=== PATIENT | male | born 1995 | race Caucasian/White ===

== ENCOUNTER → 2025-08-08 | Outpatient (CLI) | payer OTHER, SELFPAY ==
[2025-08-08 18:07] LABS: Magnesium 2.1 mg/dL (1.5-2.2)
[2025-08-08 18:57] LABS: Vitamin D,25 Hydroxy 32.6 ng/mL (30-100)
[2025-08-10 14:33] LABS: Cholesterol 192 mg/dL (<=200); Low Density Lipoprotein Calc. 73 mg/dL; Triglycerides 389 mg/dL; Very Low Density Lipoprotein 78 mg/dL (5-40); cholesterol:hdl ratio screen 3.30
== END | disposition home or self-care (01) ==
LOC: MFPLAB 15:29
PROVIDERS: Anesthesiology; Visit Provider Podiatrist Foot & Ankle Surgery
DX: Z01.818 Encounter for other preprocedural examination (principal)
CPT/HCPCS: 80061; 82306; 83036; 83735; 87077; 87081

== ENCOUNTER 2025-08-12 05:20 | Day surgery (SDC) | payer OTHER, SELFPAY ==
[2025-08-12] VITALS (15 sets, daily range): BP systolic 102–131; BP diastolic 60–77; PULSE 58–70; RESP 16–18; TEMP 36.1–36.8; O2SAT 96–100; BMI 25.0
--- OUTSIDE RECORDS SUMMARY | 2025-08-12 05:22 | XMS RPT_ITS | CCD ---
Author Organization [facility] Care Team Providers Care Rn Outpatient Surgery Name Role Phone Lillie MELENDREZ, Dr. Sarmiento Attending Provider Can Durant Referring Unavailable Torsten Moreira Attending Unavailable Taco Verma Attending Unavailable Problems Active Problems Problem Classification Problem Date Documented Da te Episodic/Chronic Other bone disease and musculoskeletal deformities (1 source) Bone cyst; Translations: [Other cyst of bone, right ankle and foot] 03-10-2025 Episodic Unclassified (1 source) Other cyst of bone of right ankle or foot Unclassified (2 sources) M85.671 - Other cyst of bone, right ankle and foot Past or Other Problems Problem Classification Problem Date Documented Da te Episodic/Chronic Other bone disease and musculoskeletal deformities (1 source) Other cyst of bone, right ankle and foot; Translations: [Other cyst of bone, right ankle and foot] Onset: 04-18-2025 Episodic Other connective tissue disease (1 source) Ganglion, unspecified site; Translations: [Ganglion, unspecified site] Onset: 04-18-2025 Episodic Results Test Name Value Interpretation Reference Range Facil ity Plastic Surgery Visit Report on 03-10-2025 Plastic Surgery Visit Report [facility] [address], [address] [place], [place] [id number] OFFICE VISIT Date of Service: 03/10/25 MR#: [id number] Acct: [id number] Name: NIKOLE HURTADO Rep #: [id number] : 1995 Provider: Dr. Torsten Moreira MD Age/Sex: 29/M Location: [facility] Status: Signed Intake Vital Signs 3 03/10/25 13:42 Height 5 ft 7 in Weight: 156 lb BMI 24.4 BP 115/73 Blood Pressure Location Rt brachial Position Sitting Respiration 18 Pulse 69 Pulse Source Monitor Pulse Oximetry (%) 97 Oxygen Delivery Method room air Intake Visit Reasons: GANGLION CYST Chief Complaint: cyst on right outer ankle Is patient in pain?: No Allergies No Known Allergies Allergy (Unverified 03/10/25 13:34) Medications 3 ???Medication ???Instructions ???Recorded ???Confirmed ???Type NK 03/10/25 03/10/25 History Nurse's Note: pt reports cyst on right outer ankle present for approx 3-4 years. Area was drained in Jun by Dr. Mcconnell but it has since returned. Denies any pain to the area. [facility] Medical History Kidney stones Social History Smoking Status: Never smoker HPI GANGLION CYST Details: The patient is a 29-year-old male presenting with recurrent swelling of the right ankle and evaluation of a ganglion cyst. The issue commenced in June when significant ankle swelling was noted, which was subsequently drained by Dr. Champion. Initially, the patient suspected a fracture due to a past inversion injury in college, but this was not corroborated. The patient recounts two significant right ankle injuries, one during college and another three to four years ago, both attributable to ankle rolling. Despite receiving initial treatment, the swelling has recurred, prompting a visit for further assessment. The patient maintains an active lifestyle, engaging in running, including recent race preparation. He speculates that physical activity and footwear choices may exacerbate the swelling. The patient understands the nature of a ganglion cyst as a joint fluid out-pouching and has undergone similar drainage in the past, though recurrence is common. Attestation: Documentation on this patient encounter was supported using ambient scribe technology/ voice AI technology. The patient consented to recording for the purpose of documenting the encounter. Provider reviewed content of the generated note prior to signature. ROS General General: Yes good health; No fatigue, fever(s) or weight loss HENMT HENMT: No rhinitis, sore throat/mouth sore, nasal congestion, contacts or glaucoma Endo Endocrine: No thyroid disease, polydipsia, heat intolerance, cold intolerance, hepatitis or excessive urine Skin Skin: No Bleeding, bruising, changing moles or suspicious lesion Musc Musculoskeletal: No joint pain, joint stiffness, muscle weakness, back pain, osteoarthritis or Muscle aches/ myalgia Neuro Neurological: No headache(s), No lightheadedness and No numbness Cardio Cardiovascular: No chest pain, pacemaker, fatigue or shortness of breat with exertion Psych Psychiatric: No depression, claustrophobia or anxiety Resp Respiratory: No spitting up, shortness of breath, sleep apnea, asthma, emphysema, TB, Cough or Smoker Gastro Gastrointestinal: No diarrhea, constipation, blood in stool, nausea, vomiting or abdominal bloating Anthony Hematologic: No anemia, No bleeding and No abnormal bleeding Genitourinary: No urinary frequency, blood in urine or incontinence Exam Details - Musculoskeletal: Reports recurrent swelling of the right ankle and a known ganglion cyst. Denies any other joint pain or swelling. 3 x 4 cm ganglion cyst right lateral ankle Coding Level of Care Code Off vis,new,level 3 Diagnoses Ganglion cyst M67.40 Assessment and Plan (No Qualifiers) Assessment and Plan (1) Ganglion cyst: Status: Acute Comment: Right ankle Plan: Assessment and Plan 29-year-old male with history of concern for potential ganglion cyst and persistent swelling. The recurrent swelling had initially subsided following aspiration but has reappeared, possibly due to recent increased physical activity and specific footwear choices. The patient's previous ankle injuries may contribute to the present condition. Assess the ganglion cyst on the right ankle, considering potential surgical removal if it significantly affects the patient's activity or comfort. A referral to Dr. Verma is planned for further specialized management, aiming for optimal resolution and minimal recurrence. Plan Details Additional Comments: - Modify your footwear to support your ankle and avoid exacerbating the swelling. - (more content not included)... Normal [facility] Vital Signs Date Time Vital Sign Value Performing Clinician Homa villasenor 03-10-2025 13:42-0400 Body height 170.[address] Torsten Moreira MD Work Phone: [facility] 03-10-2025 13:42-0400 Body mass index (BMI) [Ratio] 24.4 kg/m2 Dr. Torsten Moreira MD Work Phone: [facility] 03-10-2025 13:42-0400 Body weight 70.[address] Torsten Moreira MD Work Phone: [facility] 03-10-2025 13:42-0400 Diastolic blood pressure 73 mm[Hg] Dr. Torsten Moreira MD Work Phone: [facility] 03-10-2025 13:42-0400 Heart rate 69 /min Dr. Torsten Moreira MD Work Phone: [facility] 03-10-2025 13:42-0400 Respiratory rate 18 /min Dr. Torsten Moreira MD Work Phone: [facility] 03-10-2025 13:42-0400 SaO2% (BldA) [Mass fraction] 97 % Dr. Torsten Moreira MD Work Phone: [facility] 03-10-2025 13:42-0400 Systolic blood pressure 115 mm[Hg] Dr. Torsten Moreira MD Work Phone: [facility] Encounters Encounter Date Encounter Type Care Provider Facility Start: 08-12-2025 ambulatory [facility] Facility: [facility] Start: 03-10-2025 End: 03-10-[address] Torsten Moreira MD -[place] [facility] Work Phone: Start: 03-10-2025 End: 03-10-2025 ambulatory Cezarfernanda Cesarmarisol [facility] Payers Date Payer Category Payer Self-pay 2025 Unknown [id number] Unknown [id number] Unknown [id number] Social History Date Type Detail Facility Start: 03-10-2025 Tobacco smoking stat us [facility]IS Never smoked tobacco (finding) [facility] Start: 1995 Sex Assigned At Male [facility] Evaluation note Note Date & Type Note Facility Evaluation note No assessment information availa ble [facility] Work Phone: Hospital Discharge instructions Note Date & Type Note Facility Hospital Discharge instructions Ambulatory OrdersPodiatry Location: None Selected [facility] Work Phone: Chief Complaint and Reason for Visit Chief Complaint Admit Date GANGLION CYST March 10, 2025 1:22p m Summary Purpose Family History No Family History Records Found Advance Directives No Advanced Directives Records Found Additional Source Comments Care Teams (unrecognized sec tion and content) Team Status: Inactive Member Role/Relationship Status Dates Dr. Torsten Moreira MD Attending Provider Active Start: March 10, 2025 End: March 10, 2025 Goals (unrecognized section and content) Goals may be documented in a n alternate section (unrecognized sect ion and content) No Status Records Found INFORMATION SOURCE (unrecogn ized section and content) DATE CREATED AUTHOR 07/19/2025 [facility] FOR RECORDS PERTAINING TO PATIENTS WHO ARE OR HAVE BEEN ENROLLED IN A CHEMICAL DEPENDENCY/SUBSTANCEABUSE PROGRAM, SOME INFORMATION MAY BE OMITTED. This clinical summary was aggregated from multiple sources. Caution should be exercised in using it in the provision of clinical care. This summary normalizes information from multiple sources, and as a consequence, information in this document may materially change the coding, format and clinical context of patient data. In addition, data may be omitted in some cases. CLINICAL DECISIONS SHOULD BE BASED ON THE PRIMARY CLINICAL RECORDS. [facility]. provides no warranty or guarantee of the accuracy or completeness of information in this document.
[2025-08-12] MEDS: Lactated Ringers 1,000 ML 15 ML IV (06:07)
[2025-08-12] MEDS: Magnesium 1 GM over 15 mins IV (06:09)
--- NOTE | 2025-08-12 06:58 | PRE.ANES_ITS ---
ASA Classification* ASA Classification ASA Classification: 2 Assessment & Plan Anesthesia* Anesthesia Assessment Anesthesia Assessment: Discussed sedation and/or anesthesia options, risks, benefits, and alternatives with patient/parents/legal guardian/POA. Questions invited. The patient/parents/legal guardian/POA seems to understand and agrees to proceed with anesthesia plan. Reviewed the physical assessment, medical history, allergy history and patient home medications list prior to surgery/procedure/anesthetic and documented any changes. Performed airway and anesthesia risk assessments. Anesthesia Type Anesthesia Type: General and Block Anesthesia Focused Assessment* Temperature: 97.8 F Pulse Rate: 61 Blood Pressure: 131/74 Respiratory Rate: 16 Pulse Ox: 98 Airway Assessment Mouth opens: >3 cm Mallampati Score: II Labs Anesthesia Preop lab: CBC CHEMISTRY Magnesium, (1.5-2.2) 2.1 mg/dL 08/08/25, 15:29 POC Glucose, (74-106) 137 mg/dL H Today, 05:58 COAG Pre-Assessment Diagnosis/Proposed Procedure Planned Operative Procedure(s): EXCISION OF A RIGHT LEG LESION WEITH ADVANCEMENT FLAP CLOSURE AND STRTESS VIEW OF THE RIGHT ANKLE Anesthesia History Anesthesia History - erisa attorney: Anesthesia History - erisa attorney Hx Hospitalization No 08/08/25 14:42 Any Problems With Anesthesia No 08/08/25 14:42 Cholinesterase deficiency No 08/08/25 14:42 You/Your Family Experience No 08/08/25 14:42 fever (hyperthermia) with Relationship Recent Exposure to Contagious No 08/12/25 05:54 Disease Does patient have nerve No 08/08/25 14:42 stimulator Patient instructed to have device shut off --Does patient have Pacemaker No 08/12/25 05:55 or ICD? When Was Last Pacemaker Check QUESTION #4 FULL TEXT: You/Your Family Experience fever (hyperthermia) with Anesthesia Last Oral Intake Last Oral intake: Last Oral Intake NPO since 04:45 08/12/25 05:55 Meds taken in AM with sips of No 08/12/25 05:55 water? Meds patient instructed to take am of surgery PONV PONV - erisa attorney: PONV - erisa attorney Female No 08/08/25 14:42 HX of Motion Sickness No 08/08/25 14:42 HX of N/V After Surgery No 08/08/25 14:42 Non-Smoker Yes 08/08/25 14:42 Duration of Surgery greater Yes 08/08/25 14:42 than 60 minutes Number of Risk Factors 2 08/08/25 14:42 PONV Score Moderate Risk 08/08/25 14:42 Height & Weight Height & Weight: Anesthesia: Height & Weight Height 5 ft 7 in 08/12/25 05:55 Weight: 72.665 kg 08/12/25 05:55 Body Mass Index (BMI) 25.0 08/12/25 05:55 Respiratory Assessment Respiratory Assessment - erisa attorney: Respiratory Tract Infection Hx - erisa attorney Hx Respiratory Tract Infection No 08/08/25 14:42 STOP Sleep Apnea STOP Sleep Apnea - erisa attorney: STOP Sleep Apnea - erisa attorney Hx Hypertension No 08/08/25 14:42 Hx Sleep Apnea No 08/08/25 14:42 CPAP BIPAP Do you snore loudly (louder No 08/08/25 14:42 than talking or can be heard Do you often feel tired/ No 08/08/25 14:42 fatigued/ sleepy during daytime? Has anyone observed you stop No 08/08/25 14:42 breathing during sleep? STOP Results Negative 08/08/25 14:42 QUESTION #5 FULL TEXT : Do you snore loudly (louder than talking or can be heard through closed doors)? 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 Specify any problems Hx of Preganancy in last 3 N/A 08/08/25 14:42 Months Nurse Filling Out Transfusion DSCHRIBER 08/08/25 14:42 & Questions: Date: 08/08/25 08/08/25 14:42 Time: 14:43 08/08/25 14:42 Patient unable to answer at this time (ie. confused, unrespo /Reproduction History /Reproductive History - erisa attorney: /Reproductive Hx- erisa attorney Hx Now No 08/08/25 14:42 Gestational Age (in weeks): EDC: Hx Hx Para Hx Section SAB No 08/08/25 14:42 Does the father of the baby or his family experience fever w Father of the baby Malignant Hypertension history comment Active Medications Active Medications: Current Medications Generic Name Dose Route Start Last Admin Trade Name Freq PRN Reason Stop Dose Admin Acetaminophen 1,000 mg 08/12/25 07:30 08/12/25 06:05 Acetaminophen 500 Mg Tablet PO 08/12/25 07:31 1,000 mg PREOP ONE Administration Gabapentin 600 mg 08/12/25 07:30 08/12/25 06:02 Gabapentin 600 Mg Tablet PO 08/12/25 07:31 600 mg PREOP ONE Administration Cefazolin Sodium 2 gm/ Sodium 110 mls @ 200 mls/hr 08/12/25 07:30 Chloride IV 08/12/25 08:02 INTRAOP ONE Magnesium Sulfate 1 gm/ 102 mls @ 408 mls/hr 08/12/25 07:30 08/12/25 06:09 Dextrose IV 08/12/25 07:44 408 mls/hr PREOP ONE Administration Lactated Ringer's 1,000 mls @ 15 mls/hr 08/12/25 05:45 08/12/25 06:07 IV 15 mls/hr .Q48H AAMNUEL Administration Insulin Human Lispro 1 - 6 unit 08/12/25 07:30 Insulin Lispro 100 Unit/Ml Insuln.Pen SC Q4H PRN PRN BG>/= 180, SEE PROTOCOL Protocol PFSH Medical History Marijuana use Alcohol use Heartburn Leg cramps Non-smoker Home Medications ?Medication ?Instructions ?Recorded ?Last Taken ?Type NK 03/10/25 Unknown History Allergy/AdvReac Type Severity Reaction Status Date / Time No Known Allergies Allergy Verified 08/12/25 05:53 Surgical History No pertinent past surgical history Social History Smoking Status: Never smoker Review of Systems (Anesthesia) ROS Narrative System reviewed and no additional complaints, except as documented.
--- NOTE | 2025-08-12 07:27 | PCM.OPRPT ---
Operative Report (Standard) Operative Information Date of Procedure: 08/12/25 Pre-Operative Diagnosis: 1. Benign neoplasm of skin and connective tissue, right lower extremity 2. Pain, right lower extremity 3. Ankle sprain, right lower extremity Post-Operative Diagnosis: Same as preoperative diagnosis Surgery/Procedure Performed: Procedure #1: Excision of lesion, right lower extremity Procedure #2: Stress views, right lower extremity Procedure #3: Advancement flap closure, right lower extremity screen vent binder: Yes Supervisor Sound Technician: Darius Mooney PGY2 Tasks completed by first aid trainer: Closing and Dissecting tissue Additional optometry assistant?: Yes Additional Field Trainer #2: Domingo Posada Tasks completed by optometry assistant #2: Closing Additional optometry assistant?: No Type of Anesthesia: General/Regional RN Documented Start/Stop Times: Operation Date: 08/12/25 07:30 Case Time Into Pre-Op 08/12/25 05:34 Anesthesia Start 08/12/25 07:28 Into Room 08/12/25 07:28 Procedure Start 08/12/25 07:48 Procedure End 08/12/25 08:37 Anesthesia End 08/12/25 08:40 Out of Room 08/12/25 08:40 Into Recovery 08/12/25 08:42 Procedure Start Time: 07:48 Procedure Stop Time: 08:37 Select all DRAINS/GRAFTS/IMPLANTS that apply: None Special Medications: Per anesthesia Estimated Blood Loss: 15 mL Fluids Replaced: Per anesthesia Specimen collected: Yes Description of specimen(s) removed: Ganglion cyst/benign skin lesion, right lower extremity Description of surgery: Indications For Operation: Mr. Barfield is a very pleasant 29-year-old male who was admitted to [facility] for elective surgery to right lower extremity consisting of benign skin lesion and ankle sprain for stress views and removal of the skin lesion to right lower extremity. Patient is well-known to my clinic and has been seen for the past 6 months for evaluation and consultation regarding the benign skin lesion that correlates with a ganglion cyst after advanced imaging clarify the size and location of the lesion. Long discussion with the patient regarding surgical correction versus in office draining, the patient states that his primary doctor drained the ganglion cyst about a year ago and it came back larger than before. The patient stated that since the lesion came back larger he would like to move forward with elective surgery. All risk and benefits were discussed with patient in great detail. Surgical consultation was performed in the office. All risk and benefits again were discussed with the patient great detail. Chart review and consent was signed. Due to the nature and size of the benign skin lesion to right lower extremity and history of ankle sprains it was deemed necessary at this time to take the patient in the operating room to performed above procedure to evaluate the patient's ankle as well as help reduce his constant pain from the lesion. I also discussed with the patient that we may benefit from correcting his ATFL ligament but at that time he declined due to it not bothering him. He was aware that he may need to move forward with additional surgery. The nature of the problem, anticipated procedures, postop recovery/convalences and risk/complications include but not limited to infection, wound healing complications, digital amputation, hypertrophic scarring, numbness, tingling, chronic pain, CRPS, over and under correction, recurrence of deformity, DVT and or PE and the need for further surgery have been discussed in great detail with the patient. All questions have been answered to the patient's satisfaction. There are no guarantees given as to the outcome of the procedure. Description of Procedure: Under mild sedation, the patient was brought into the operating room and placed on the operating table in supine position. Once the patient was under general anesthesia with laryngeal mask airway, the right lower extremity was blocked by anesthesia in the PACU for adductor and popliteal block prior to the procedure. Please see anesthesia notes for further detail Next, a well-padded thigh tourniquet was applied to the right lower extremity. Next, the right lower extremity was prepped and draped in normal aseptic manner. Next, a timeout was then undertaken verifying the correct patient, extremity, visibility of preoperative markings, availability of the equipment. Next, attention was directed to the right lower extremity. Using a foreign Esmarch, right lower extremity was exsanguinated and elevated to 60 degrees for 1 minute. Procedure #1: Excision of lesion, right lower extremity (CPT code: 05142) Next, attention was directed to the level of the lesion. Using a sterile skin marker the incision was marked out over the anterior border of the fibula down to the level of the summit. Using a #15 blade a full-thickness tissue down to dermis was performed. Continue careful dissection was carried sharply down to the level of the deep fascia. Using a wet Ray-Rose Marie the fascia was dissected exposing the superior aspect of the ganglion cyst. Continue blunt dissection was carried down and around the level of the ganglion cyst with Littler scissors. The stalk was identified evacuating from the sinus tarsi. Cautery was used to remove the stock and total. The ganglion cyst measured approximately 1.8 x 1.5 x 0.8 cm. Small incision was placed on the dorsal aspect of the ganglion that showed only evidence of clear gelatinous fluid with no concern of infection. Next the incision was flushed with copious normal saline. Procedure #2: Stress views, right lower extremity (CPT code: 73556) Next, using large C-arm fluoroscopy, the right lower extremity was stressed and showed evidence of a 3 to 5 degree talar tilt. Procedure #3: Advancement flap closure, right lower extremity (CPT code: 22429) Next, again the incision was flushed with copious normal saline. The skin was remodeled and undermined through the incision of the right lower extremity allowing for a clean advancement flap closure. The deep layer was reapproximated and closed with 3-0 Vicryl in running locking suture technique. Next, the right thigh tourniquet was deflated and reperfusion was noted instantly to the right lower extremity. All bleeders were cauterized and ligated as necessary. The subcutaneous layer was reapproximated closed with 3-0 Vicryl in running suture technique. The skin was advancement flap closed and reapproximated using 4-0 Monocryl in subcuticular suture technique. The right lower extremities were cleaned and patted dry. Half-inch Steri-Strips were applied followed by Betadine soaked Adaptic, dry sterile dressing on a double layer Smith AO splint at 90 degrees the right lower extremity was donned. The patient tolerated the procedure and anesthesia well and apparent satisfactory condition and was transported to the PACU for further monitoring prior to discharge home. Vital signs stable and vascular status intact to all digits bilateral. Post Operative Plan: Weightbearing: Antibiotics: 2 g Ancef through the IV DVT Prophylaxis: 81 mg aspirin Thompson: None Dressing: Betadine soaked Adaptic dry sterile dressing double layer Smith AO splint at 90 degrees to right lower extremity. X-Rays: Stress views taken in the operating room. Pain Medication: Oxycodone 5 mg tablets, cyclobenzaprine 10 mg, Tylenol 650 mg Follow-up: Patient will follow-up at already scheduled postoperative appointment. Surgical Findings: 1. Evidence of large septate type ganglion cyst with no concern of infection. 2. Evidence of a 3 to 5 degree talar tilt with stress view. Will discuss with patient regarding ATFL repair after physical therapy as needed. 3. Advancement flap closure of the incision of the right lower extremity. Complications Complications: No Admit VTE Documentation VTE Present on Admission: No VTE Mechan Device Prophylaxis: SCD's VTE Pharm Prophylaxis ordered?: Yes
[2025-08-12] MEDS: Midazolam 2 MG/2 ML Syringe IV (07:28)
--- NOTE | 2025-08-12 07:30 | GANG_PTH ---
PATIENT: NIKOLE HURTADO LOC: [facility] [place] U#:[id number] AGE/SX: 29/M ROOM: RE08/12/[address]: Dr. Taco Verma DPM : 1995 BED: DIS: 08/12/2025 SPEC #: [id number] RECD: 08/12/25 09:27 STATUS: DRU HAYDEN #: [id number] SANTA: 08/12/25 07:[address]: Taco Verma DEPT: SURGICAL PATHOLOGY RECD BY: Jose Alberto Uriostegui ENTERED: 08/12/25 11:28 SP TYPE: GANGLION OTHR DR: Dr. Can Durant MD Tissues: A - GANGLION CYST Procedures: Surgery Specimen Level III HEADER OPERATION: ERAS, excision of a lesion on right left with advancement PRE-OP DIAGNOSIS: Ganglion cyst of right foot TISSUE SUBMITTED: A- Ganglion cyst of right ankle MICROSCOPIC DIAGNOSIS A. Soft tissue, right ankle, ganglion cyst, excision: - Fibroadipose tissue with multiloculated cystic spaces consistent with ganglion cyst. MICROSCOPIC DESCRIPTION Slides are reviewed. GROSS DESCRIPTION A. Received in formalin labeled with the patient's name and date of . Designated as ganglion cyst RT ankle is a 2.5 x 2.3 x 0.8 cm pink-white, focally disrupted, lobulated cyst expelling clear gelatinous material. Sectioning reveals multiloculated cystic cut surfaces. Rotary Cutter sections are submitted in 1 cassette. AL 08/12/2025 CPT:[id number]
[2025-08-12] MEDS: fentaNYL 100 MCG/2 ML Ampul IV (07:34)
[2025-08-12] MEDS: Lidocaine 1% (5 ml sdv) 5 ML Vial 10 ML IV (07:34)
[2025-08-12] MEDS: Lactated Ringers 1,000 ML 1000 ML IV (07:37)
[2025-08-12] MEDS: Cefazolin 1 GM/5 ML Vial 2 GM IV (07:38)
--- NOTE | 2025-08-12 08:05 | RAD_ITS ---
EXAM: XR Right Foot, 2 Views CLINICAL INDICATION: EXCSION OF LESION ON RIGHT LEG WITH FLAP CLOSURE, STRESS VIEWS TECHNIQUE: Frontal and lateral views of the right foot. COMPARISON: No relevant prior studies available. FINDINGS: 2 fluoroscopic images were obtained. Total fluoroscopy time 5 seconds. Total radiation dose 0.19 mGy. RAD/Foot 2 Views IMPRESSION: Fluoroscopic guidance was used intraoperatively. Please refer to the operative note for further details. Reading Location: [id number]
--- NOTE | 2025-08-12 09:14 | PCM.POST.ANE ---
Anesthesia: Postop Eval I Current Vital Signs Temperature: 97 F Pulse Rate: 66 Blood Pressure: 120/73 Respiratory Rate: 16 Pulse Ox: 99 Oxygen Delivery Method: Nasal Cannula Oxygen Flow Rate (L/min): 4 Assessment Airway patent: Yes Spontaneous unlabored respirations: Yes Mental status: Awake nausea: No Vomiting: No Anesthesia Complication: No Fluid Hydration Crystalloid volume administer (ml): 200 Total IV fluid infused: 200 Progress Note Anesthesia document: Postop Eval 1 completed: Yes
--- NOTE | 2025-08-12 11:38 | PCM.POST.ANE ---
Anesthesia: Postop Eval I Current Vital Signs Temperature: 97.9 F Pulse Rate: 68 Blood Pressure: 119/72 Respiratory Rate: 18 Pulse Ox: 98 Oxygen Delivery Method: Room Air Assessment Airway patent: Yes Spontaneous unlabored respirations: Yes Mental status: Awake nausea: No Vomiting: No Anesthesia Complication: No Fluid Hydration Crystalloid volume administer (ml): 1,000 Total IV fluid infused: 1,000 Progress Note Anesthesia document: Postop Eval 1 completed: Yes
== END 2025-08-12 11:32 | disposition home or self-care (01) ==
LOC: SDC 05:21 → AC 05:24
PROVIDERS: PCP Family Medicine; Referring Provider Podiatrist Foot & Ankle Surgery; Visit Provider Podiatrist Foot & Ankle Surgery
PROC: (CPT 14040; principal; 2025-08-12 07:15)
DX: M67.471 Ganglion, right ankle and foot (principal); S93.491A Sprain of other ligament of right ankle, initial encounter; X58.XXXA Exposure to other specified factors, initial encounter
CPT/HCPCS: 14040; 00400; 64447; 64450; 73620; 76000; 82962; 88304; J2405; J3475